=== PATIENT | male | born 1945 | race Caucasian/White ===

== ENCOUNTER 2017-11-16 08:09 | Emergency (ER) | payer BC ==
[~2017-11-16] VITALS: Ht 185.4 cm; Wt 121.6 kg
[~2017-11-16 08:09] MED LIST: AMLODIPINE BES2.5 MG PO; AMOX TR-K CLV1 EAC4 PO; CEFTIN500 MG PO; GLIPIZIDE5 MG PO; GLUCOPHAGE1000 MG PO; HYDROCHLOROTH12.5 M3 PO; LISINOPRIL20 MG PO; PREDNISONE10 MG PO; PROVENTIL HFA6.7 GM IH; SPIRIVA1 INHALATI IH
[2017-11-16 09:27] LABS: HEMATOCRIT 41.7 % (38.0-50.0); HEMOGLOBIN 14.3 G/DL (12.5-16.6); MCH 28.5 PG (29.0-34.0); MCHC 34.3 G/DL (30.0-36.0); MCV 83.2 FL (86-99); PLATELET COUNT 237 K/uL (156-360); RBC DIS.WIDTH-CV 14.3 % (11.8-14.6); RBC DIS.WIDTH-SD 43.7 % (39-53); RED BLOOD COUNT 5.01 M/uL (4.00-5.50); WHITE BLOOD COUNT 8.7 K/uL (4.1-10.2)
[2017-11-16 09:33] LABS: INTER. NORMALIZED RATIO 1.1
[2017-11-16 09:35] LABS: PTT 31.3 SEC (25-37)
[2017-11-16 09:37] LABS: ALBUMIN 3.6 g/dL (3.2-4.8); CHLORIDE 105 mEq/L (99-109); POTASSIUM 3.9 mEq/L (3.7-5.4); SODIUM 140 mEq/L (136-147)
[2017-11-16 09:40] LABS: GLUCOSE 147 mg/dL (70-99); TOTAL PROTEIN 6.4 g/dL (6.4-8.3)
[2017-11-16 09:42] LABS: TOTAL BILIRUBIN 0.8 mg/dL (0.0-1.0)
[2017-11-16 09:43] LABS: ALKALINE PHOSPHATASE 87 IU/L (3-129); CREATININE 0.8 mg/dL (0.6-1.3); GFR ESTIMATE (CALCULATED) > 59 mL/min/ (58.99-99999)
[2017-11-16 09:45] LABS: AST (GOT) 17 IU/L (2-34); UREA NITROGEN (BUN) 15 mg/dL (9-23)
[2017-11-16 09:46] LABS: ALT (GPT) 12 IU/L (3-49)
[2017-11-16 09:52] LABS: APPEARANCE CLOUDY ((CLEAR)); COLOR RED ((YELLOW)); LEUKOCYTES TRACE; NITRITE NEGATIVE; SPECIFIC GRAVITY 1.025 (1.000-1.030)
[2017-11-16 09:53] LABS: BILIRUBIN NEGATIVE; BLOOD LARGE; GLUCOSE (STRIP) NEGATIVE; KETONES NEGATIVE; PROTEIN (STRIP) 100; UROBILINOGEN 0.2 MG/DL (0.2-1.0)
[2017-11-16 09:56] LABS: BACTERIA NONE SEEN /HPF; EPITHELIAL CELLS NONE SEEN /HPF; MUCUS NONE SEEN /LPF; RED BLOOD CELLS TNTC /HPF (0-5); UCUL ADDED? YES; WHITE BLOOD CELLS RARE /HPF (0-5)
[2017-11-16] MEDS ORDERED: PYRIDIUM100 MG PO (10:35)
[2017-11-16 11:11] VITALS: BP 153/96
== END 2017-11-16 11:25 | disposition home or self-care (01) ==
LOC: EME 08:09
PROVIDERS: Emergency Medicine
DX: R31.9 Hematuria, unspecified (principal); N40.0 Benign prostatic hyperplasia without lower urinary tract symptoms; E11.9 Type 2 diabetes mellitus without complications; Z79.84 Long term (current) use of oral hypoglycemic drugs; I10 Essential (primary) hypertension; Z87.891 Personal history of nicotine dependence
CPT/HCPCS: 80053; 81003; 84153; 85027; 85610; 85730; 87086; 99281; 99284; J7030

== ENCOUNTER 2018-03-08 09:41 | Emergency (ER) | payer BC ==
[~2018-03-08] VITALS: Ht 185.4 cm; Wt 117.8 kg
[~2018-03-08 09:41] MED LIST changes: +PYRIDIUM100 MG PO
[2018-03-08 09:47] VITALS: BP 172/104
== END 2018-03-08 11:40 | disposition home or self-care (01) ==
LOC: EME 09:41
DX: T16.1XXA Foreign body in right ear, initial encounter (principal); E11.9 Type 2 diabetes mellitus without complications; I10 Essential (primary) hypertension; Z87.891 Personal history of nicotine dependence; Z79.84 Long term (current) use of oral hypoglycemic drugs
CPT/HCPCS: 99281; 99283